=== PATIENT | female | born 1985 | race American Indian/Alaskan Native ===

== ENCOUNTER 2021-01-20 19:52 | Emergency (ER) | payer SELFPAY ==
[2021-01-21 00:58] LABS: Bilirubin,Urine NEG (Negative); Blood,Urine NEG (Negative); Color,Urine Yellow (Yellow); Mucus,Urine 1+ /HPF; Urobilinogen,Urine < 2.0 mg/dL (<2.0); WBC,Urine < 1.0 /HPF (0.0-6.0)
[2021-01-21 01:03] LABS: HCG Qualitative,Urine Negative (Negative)
--- NOTE | 2021-01-21 01:41 | Emergency Department Report ---
ED Female HPI - General Chief complaint: Back Pain/Injury Stated complaint: POSSIBLE VAGINAL INFECTION Source: patient Mode of arrival: Ambulatory Limitations: No Limitations - History of Present Illness Initial comments: Patient is a 35-year-old -[place] female with acute history of chronic low back pain, chronic recurrent bacterial vaginosis who presents to the ED with acute exacerbation of her chronic low back pain for the last 1 week, worse in the last 2 days. Patient also complains of urinary frequency and urgency and yellowish vaginal discharge for the last 1 week. Patient states that her symptoms are similar to her chronic recurrent bacterial vaginosis and chronic low back pain with exacerbation. Patient denies fall, traumatic injury, dizziness, syncope, dysuria, urinary frequency and urgency, fever, chills, cough, heavy lifting, numbness and tingling or weakness of lower extremities bilaterally, vaginal bleeding or abdominal pain, nausea and vomiting or diarrhea. MD Complaint: vaginal discharge, other (low back pain) -: Gradual, unknown (chronic low back) Location: other (vaginal ) Radiation: non-radiating Severity scale (0 -10): 7 Quality: sharp, aching Consistency: constant Improves with: none Worsens with: none Are you Now?: No Associated Symptoms: denies other symptoms, vaginal discharge, other (Back pain). denies: vaginal bleeding, abdominal pain, nausea/vomiting, fever/chills, headaches, loss of appetite, dysuria, rash, seizure, shortness of breath, syncope - Related Data Previous Rx's Medication Instructions Recorded Last Taken Type Baclofen 20 mg PO Q12H PRN #20 tablet 01/21/21 Unknown Rx Fluconazole [Diflucan TAB] 200 mg PO QDAY #1 tablet 01/21/21 Unknown Rx Ibuprofen [Motrin] 800 mg PO Q8HR PRN #30 tablet 01/21/21 Unknown Rx metroNIDAZOLE [Flagyl] 500 mg PO Q12HR #14 tab 01/21/21 Unknown Rx ED Review of Systems ROS: Stated complaint: POSSIBLE VAGINAL INFECTION Other details as noted in HPI Constitutional: denies: chills, fever Eyes: denies: eye pain, eye discharge, vision change ENT: denies: ear pain, throat pain Respiratory: denies: cough, shortness of breath, wheezing Cardiovascular: denies: chest pain, palpitations Endocrine: no symptoms reported Gastrointestinal: denies: abdominal pain, nausea, diarrhea Genitourinary: urgency, frequency, discharge. denies: dysuria Musculoskeletal: back pain (Low back pain). denies: joint swelling, arthralgia Skin: denies: rash, lesions Neurological: denies: headache, weakness, paresthesias Psychiatric: denies: anxiety, depression Hematological/Lymphatic: denies: easy bleeding, easy bruising ED Past Medical Hx - Past Medical History Previous Medical History?: No - Surgical History Past Surgical History?: No - Medications Home Medications: Home Medications Medication Instructions Recorded Confirmed Last Taken Type Baclofen 20 mg PO Q12H PRN #20 tablet 01/21/21 Unknown Rx Fluconazole [Diflucan TAB] 200 mg PO QDAY #1 tablet 01/21/21 Unknown Rx Ibuprofen [Motrin] 800 mg PO Q8HR PRN #30 tablet 01/21/21 Unknown Rx metroNIDAZOLE [Flagyl] 500 mg PO Q12HR #14 tab 01/21/21 Unknown Rx ED Physical Exam - General Limitations: No Limitations General appearance: alert, in no apparent distress - Head Head exam: Present: atraumatic, normocephalic, normal inspection - Eye Eye exam: Present: normal appearance, PERRL, EOMI Pupils: Present: normal accommodation - ENT ENT exam: Present: normal exam, normal orophraynx, mucous membranes moist, TM's normal bilaterally, normal external ear exam - Neck Neck exam: Present: normal inspection, full ROM - Respiratory Respiratory exam: Present: normal lung sounds bilaterally. Absent: respiratory distress, wheezes, rales, rhonchi, chest wall tenderness, accessory muscle use, decreased breath sounds - Cardiovascular Cardiovascular Exam: Present: regular rate, normal rhythm, normal heart sounds. Absent: systolic murmur, diastolic murmur, rubs, gallop - GI/Abdominal GI/Abdominal exam: Present: soft, normal bowel sounds. Absent: tenderness, guarding, rebound, hyperactive bowel sounds, hypoactive bowel sounds, organomegaly - Bi-manual exam: Present: other (Pelvic exam deferred at this time, patient preferred self swab) - Extremities Exam Extremities exam: Present: normal inspection, full ROM, normal capillary refill - Back Exam Back exam: Present: normal inspection, full ROM, tenderness (Palpable lumbosacral paraspinal musculoskeletal tenderness), muscle spasm, paraspinal tenderness. Absent: CVA tenderness (L), vertebral tenderness - Neurological Exam Neurological exam: Present: alert, oriented X3, CN II-XII intact, normal gait, reflexes normal - Psychiatric Psychiatric exam: Present: normal affect, normal mood, anxious - Skin Skin exam: Present: warm, dry, intact, normal color. Absent: rash ED Course Vital Signs 01/20/21 23:23 Temperature 98.2 F Pulse Rate 69 Respiratory 18 Rate Blood Pressure 149/99 O2 Sat by Pulse 100 Oximetry ED Medical Decision Making - Medical Decision Making This is a 35-year-old -[place] female with acute history of chronic low back pain, chronic recurrent bacterial vaginosis who presents to the ED with acute exacerbation of her chronic low back pain for the last 1 week, worse in the last 2 days. Patient also complains of urinary frequency and urgency and yellowish vaginal discharge for the last 1 week. Patient states that her symptoms are similar to her chronic recurrent bacterial vaginosis and chronic low back pain with exacerbation. In the ED, patient is alert and oriented x3 and is not in any distress. Urinalysis was unremarkable. Wet prep showed negative trichomonas but significant Gardnerella vaginalis levels consistent with bacterial vaginosis. Patient was therefore discharged home on antibiotics for bacterial vaginosis, pain medications and muscle relaxant for chronic low back pain. Patient was advised to return to the ED immediately if symptoms get worse, otherwise advised to follow-up with her primary care physician in 7 to 10 days for reevaluation. - Differential Diagnosis UTI; axial vaginosis; muscle spasm; chronic back pain Critical care attestation.: If time is entered above; I have spent that time in minutes in the direct care of this critically ill patient, excluding procedure time. ED Disposition Clinical Impression: Bacterial vaginosis, Chronic bilateral low back pain without sciatica, Spasm of muscle of lower back Disposition: DC-01 TO HOME OR SELFCARE Is pt being admited?: No Does the pt Need Aspirin: No Condition: Stable Instructions: Bacterial Vaginosis (ED), Bacterial Vaginosis, [id number], Chronic Back Pain, [id number], Muscle Cramps and Spasms, [id number] Additional Instructions: Take medication with food, drink plenty of fluids and follow-up with your [facility] physician or primary care physician in 7 to 10 days for reevaluation. Return to the ED immediately if symptoms get worse. Prescriptions: Baclofen 20 mg PO Q12H PRN #20 tablet PRN Reason: Muscle Spasm Fluconazole [Diflucan TAB] 200 mg PO QDAY #1 tablet metroNIDAZOLE [Flagyl] 500 mg PO Q12HR #14 tab Ibuprofen [Motrin] 800 mg PO Q8HR PRN #30 tablet PRN Reason: Pain , Severe (7-10) Referrals: [facility] [Provider Group] - 7-10 days Forms: STI Treatment and Prevention Time of Disposition: 01:38 Print Language: YI
[2021-01-21 04:36] VITALS: BP 133/89
== END 2021-01-21 02:38 | disposition home or self-care (01) ==
LOC: ED 19:52
DX: N76.0 Acute vaginitis (principal); B96.89 Other specified bacterial agents as the cause of diseases classified elsewhere; M62.830 Muscle spasm of back; G89.29 Other chronic pain; M54.5 Low back pain; Z79.899 Other long term (current) drug therapy
CPT/HCPCS: 81001; 81025; 87210; 99283